=== PATIENT | female | born 1945 | race Caucasian/White ===

== ENCOUNTER 2018-03-07 20:20 | Outpatient (CLI) | payer MEDICARE | END 2018-03-07 20:21 | disposition critical access hospital (66) | LOC: EMS 20:20 | PROVIDERS: ATTEND Surgery | DX: R55 Syncope and collapse (principal); R46.4 Slowness and poor responsiveness; R47.81 Slurred speech | CPT/HCPCS: A0425; A0427 ==

== ENCOUNTER 2018-03-07 20:47 | Inpatient (IN) | payer MEDICARE ==
[2018-03-07] MEDS ORDERED: SODIUM CHLORIDE 0.9% 1,000 ML IV ONE ×2 (20:54→22:54)
--- NOTE | 2018-03-07 21:55 | CT Preliminary Report ---
Exam: CT HEAD W/O IMPRESSION: 1. Age-indeterminate likely remote appearing infarct is seen adjacent to the caudate head on the righ t 2. Small vessel ischemic change is present in the cerebral hemisphere white matter 3. Hyperattenuation involving the distal basilar artery and its tip could reflect imaging of atherosc lerosis on Brian. Thrombus in the basilar tip is not excluded. 4. Changes of chronic left maxillary sinusitis are noted. [facility] SITE ID: [id number]
[2018-03-07 22:05] LABS: BASOPHILS % (AUTO) 0.3 %; EOSINOPHILS # (AUTO) 0.1 10^3/uL (0.0-0.7); EOSINOPHILS % (AUTO) 0.9 %; HGB - HEMOGLOBIN 11.3 g/dL (12.0-16.0); LYMPHOCYTES # (AUTO) 0.6 10^3/uL (1.5-3.5); LYMPHOCYTES % (AUTO) 8.8 %; MEAN CORPUSCULAR HEMOGLOBIN 22.8 pg (27.0-31.0); MEAN CORPUSCULAR HGB CONC 30.8 g/dL (32.0-36.0); MEAN CORPUSCULAR VOLUME 74.1 fL (81.0-99.0); MEAN PLATELET VOLUME 7.4 fL (7.9-10.8); MONOCYTES # (AUTO) 0.3 10^3/uL (0.0-1.0); MONOCYTES % (AUTO) 4.6 %; NEUTROPHILS # (AUTO) 6.1 10^3/uL (1.5-6.6); NEUTROPHILS % (AUTO) 85.4 %; PLT - PLATELET COUNT 224 10^3/uL (130-450); RED BLOOD COUNT 4.98 10^6/uL (4.20-5.40); RED CELL DISTRIBUTION WIDTH 18.1 % (12.0-15.0); WHITE BLOOD COUNT 7.1 x10^3/uL (4.8-10.8)
--- NOTE | 2018-03-07 22:06 | XRAY Preliminary Report ---
Exam: XR CHEST 1 VIEW X-RAY IMPRESSION: No acute cardiopulmonary abnormality. [facility] SITE ID: [id number]
--- NOTE | 2018-03-07 22:11 | XRAY Report ---
EXAM: CHEST RADIOGRAPHY EXAM DATE: 03/07/2018 09:26 PM. CLINICAL HISTORY: Generalized weakness. COMPARISON: None. TECHNIQUE: 1 view. FINDINGS: Lungs/Pleura: No focal opacities evident. No significant pleural effusion. No pneumothorax. Mediastinum: Within exam limitations, the cardiomediastinal contour is unremarkable. Pulmonary vascul ature is within normal limits. Other: Mild irregularity of the posterior left fourth rib near midline, perhaps sequela of remote inj ury. IMPRESSION: No acute cardiopulmonary abnormality. [facility] Referring Provider Line: [phone] SITE ID: [id number]
[2018-03-07 22:22] LABS: ALBUMIN/GLOBULIN RATIO 0.8 (1.0-2.2); ALKALINE PHOSPHATASE 69 IU/L (42-121); ALT ALANINE AMINOTRANSFERASE < 10 IU/L (10-60); AST ASPARTATE AMINOTRANSFERASE 19 IU/L (10-42); BILIRUBIN,TOTAL 0.7 mg/dL (0.2-1.0); BUN - BLOOD UREA NITROGEN 23 mg/dL (6-20); CALCIUM 8.6 mg/dL (8.5-10.3); CARBON DIOXIDE - CO2 24 mmol/L (21-32); CHLORIDE 103 mmol/L (101-111); CREATININE 1.6 mg/dL (0.4-1.0); GFR - MDRD 32 (>89); GLUCOSE 165 mg/dL (70-100); LIPASE 36 U/L (22-51); MAGNESIUM 2.3 mg/dL (1.7-2.8); PHOSPHORUS 3.8 mg/dL (2.5-4.6); SODIUM 136 mmol/L (135-145)
--- NOTE | 2018-03-07 22:24 | CT Report ---
EXAM: CT HEAD EXAM DATE: 03/07/2018 09:33 PM. CLINICAL HISTORY: Syncope, headache. COMPARISON: None. TECHNIQUE: Multiaxial CT images were obtained from the foramen magnum to the vertex. Reformats: Coron al. IV contrast: None. In accordance with CT protocol optimization, one or more of the following dose reduction techniques w ere utilized for this exam: automated exposure control, adjustment of mA and/or KV based on patient s ize, or use of iterative reconstructive technique. FINDINGS: Age-appropriate prominence of the ventricles and sulci is noted. There is an oval 9 mm hypodensity la teral to the caudate head on the right. Subtle patchy low-attenuation is seen in the cerebral hemisphere white matter bilaterally. No territorial loss of banks-white matter differentiation is seen. No intracranial mass or hemorrhage is present. No extra-axial fluid collection is identified. There is hyperattenuation involving the distal basilar tip. No mass is present in either orbit. There is near complete opacification of the visualized right maxillary sinus which contains central c alcification/mineralization. The albright of this left maxillary sinus are thickened and sclerotic. The ethmoid air cells demonstrate bilateral mucosal thickening. No suspicious lytic or blastic region is present in the calvarium. IMPRESSION: 1. Age-indeterminate likely remote lacunar infarct is seen adjacent to the caudate head on the right. 2. Small vessel ischemic change is present in the cerebral hemisphere white matter 3. Hyperattenuation involving the distal basilar artery and its tip could reflect imaging of atherosc lerosis en face. Thrombus in the basilar tip is not excluded. 4. Changes of chronic left maxillary sinusitis are noted. [facility] Referring Provider Line: [phone] SITE ID: [id number]
--- NOTE | 2018-03-07 22:54 | ED Physician Documentation ---
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 According to patient and ems patient had gone to the bathroom and when she was walking back towards bed she felt like she was going to pass out. patient was helped to the ground without falling. ems was called. When ems arrived patient had some slurred speech and pinpoint pupils. Patient denied any narcotic use but did state that she tried marijuana chocolates. Upon initial evaluation in the emergency department patient had some generalized weakness but no neurological deficits. Review of Systems Constitutional: denies: Fever, Chills Eyes: denies: Decreased vision, Photophobia Ears: reports: Reviewed and negative Nose: reports: Reviewed and negative Cardiac: denies: Chest pain / pressure, Palpitations Respiratory: denies: Dyspnea, Cough GI: denies: Nausea, Vomiting : reports: Reviewed and negative Skin: denies: Rash, Lesions Neurologic: reports: Generalized weakness, Difficulty speaking, Near syncope. 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 Cardiovascular: Coronary stent, Angioplasty HEENT: Cataracts - Present Medications Home Medications: Ambulatory Orders Medication Instructions Recorded Confirmed Naproxen Sodium [Aleve] 220 mg PO PRN 05/29/13 01/14/14 Hydrocodone/Acetaminophen 1 - 2 each PO Q6H PRN #14 tablet 06/18/16 [Hydrocodon-Acetaminophen 5-325] Nitrofurantoin Monohyd/M-Cryst 100 mg PO BID 5 Days capsule 06/18/16 [Macrobid 100 mg Capsule] predniSONE [Prednisone] 20 mg PO DAILY 5 Days tablet 06/18/16 - Allergies Allergies/Adverse Reactions: Allergies Allergy/AdvReac Type Severity Reaction Status Date / Time acetaminophen [From Percocet] AdvReac Intermediate Emesis Verified 03/07/18 21: 36 oxycodone HCl * AdvReac Intermediate Emesis Verified 03/07/18 21:36 [From Percocet] codeine [Codeine] AdvReac Mild Itching Verified 03/07/18 21:36 Penicillins AdvReac Mild Itching Verified 03/07/18 21:36 hydrocodone AdvReac Unknown Itching Verified 03/07/18 21:36 prednisone AdvReac Unknown Itching Verified 03/07/18 21:36 fluoxetine HCl * AdvReac Anxiety Verified 03/07/18 21:36 [From Prozac] - Social History Does the pt smoke?: No Smoking Status: Never smoker Does the pt drink ETOH?: No Does the pt have substance abuse?: No Substance Use and Type: Marijuana - Immunizations Immunizations are current?: Yes PD ED PE NORMAL - Vitals Vital signs reviewed: Yes - General General: Alert and oriented X 3 - HEENT HEENT: Atraumatic - Neck Neck: No JVD - Cardiac Cardiac: RRR, No murmur - Respiratory Respiratory: No respiratory distress - Abdomen Abdomen: Soft, Non tender, Non distended - Derm Derm: Normal color, Warm and dry - Extremities Extremities: No deformity - Neuro Neuro: Alert and oriented X 3, Other (generalized weakness but moving all extremities) Eye Opening: Spontaneous Motor: Obeys Commands Verbal: Oriented GCS Score: 15 PD ED PE EXPANDED - General General: Alert, No acute distress - HEENT HEENT: Atraumatic, PERRL, Dry mucous membranes Results - Vitals Vitals: Vital Signs - 24 hr 03/07/18 03/07/18 03/07/18 20:49 22:22 23:57 Temperature 36.0 C L Heart Rate 117 H 108 H 104 H Respiratory 20 18 17 Rate Blood Pressure 129/67 107/76 136/76 H O2 Saturation 95 98 98 Oxygen O2 Source Nasal cannula - EKG (time done) 2057 Rate: Rate (enter#) (109) Rhythm: Sinus tachycardia [place]: Normal Intervals: Normal ND Ischemia: Q waves Compare to prior EKG: Old EKG unavailable - Labs Labs: Laboratory Tests 03/07/18 03/07/18 03/07/18 21:55 21:55 21:55 WBC 7.1 RBC 4.98 Hgb 11.3 L Hct 36.9 L MCV 74.1 L MCH 22.8 L MCHC 30.8 L RDW 18.1 H Plt Count 224 MPV 7.4 L Neut # 6.1 Lymph # 0.6 L [place] # 0.3 Eos # 0.1 Baso # 0.0 Absolute Nucleated RBC 0.00 Nucleated RBC % 0.0 Sodium 136 Potassium 4.2 Chloride 103 Carbon Dioxide 24 Anion Gap 9.0 BUN 23 H Creatinine 1.6 H Estimated GFR (MDRD) 32 L Glucose 165 H Lactic Acid Calcium 8.6 Phosphorus 3.8 Magnesium 2.3 Total Bilirubin 0.7 AST 19 ALT < 10 L Alkaline Phosphatase 69 Troponin I 0.15 B-Natriuretic Peptide Total Protein 7.0 Albumin 3.0 L Globulin 4.0 Albumin/Globulin Ratio 0.8 L Lipase 36 03/07/18 03/07/18 22:00 22:00 WBC RBC Hgb Hct MCV MCH MCHC RDW Plt Count MPV Neut # Lymph # [place] # Eos # Baso # Absolute Nucleated RBC Nucleated RBC % Sodium Potassium Chloride Carbon Dioxide Anion Gap BUN Creatinine Estimated GFR (MDRD) Glucose Lactic Acid 3.4 H* Calcium Phosphorus Magnesium Total Bilirubin AST ALT Alkaline Phosphatase Troponin I B-Natriuretic Peptide 44 Total Protein Albumin Globulin Albumin/Globulin Ratio Lipase - Rads (name of study) ct head Radiology: Final report received (chronic sinusitis, basilar thrombus vs facial artifact), See rad report PD MEDICAL DECISION MAKING - ED course Complexity details: reviewed old records, reviewed results, re-evaluated patient , considered differential, d/w patient, d/w family, d/w consultant internship ED course: Beverley was seen and examined at bedside. IV access was gained. labs were drawn. ekg was performed and showed no acute abnormalities. labs did show an elevated lactic acid and dehydration. Patient was started on two liters of fluid. CT head was ordered. When patient returned from imaging the results were reviewed. there was a questionalable basilar thrombus so MRI was needed. case was discussed with the hospitalist. it was decided to place the patient in observation for hydration and MRI. Patient was feeling better after the fluids and was transferred with no neurological deficits, in stable condition. Departure - Departure Disposition: ED Place in Observation Clinical Impression: Acute renal insufficiency Condition: Stable
[2018-03-08 01:05] LABS: BILIRUBIN,URINE NEGATIVE (NEGATIVE); CLARITY,URINE CLEAR (CLEAR); GLUCOSE, URINE (UA) NEGATIVE (NEGATIVE); KETONES,URINE (UA) NEGATIVE (NEGATIVE); LEUKOCYTE ESTERASE, URINE NEGATIVE (NEGATIVE); MUDS CUTOFF CONCENTRATIONS CUTOFF CONC BELOW:; NITRITE,URINE NEGATIVE (NEGATIVE); OCCULT BLOOD,URINE NEGATIVE (NEGATIVE); PROTEIN,URINE NEGATIVE (NEGATIVE); UROBILINOGEN,URINE 0.2 (NORMAL) E.U./dL (NORMAL)
[2018-03-08] MEDS ORDERED: SODIUM CHLORIDE FLUSH 0.9% 10 ML SYRINGE IVP PRN (01:06)
[2018-03-08] MEDS ORDERED: ACETAMINOPHEN 325 MG TABLET PO PRN (01:06)
[2018-03-08] MEDS ORDERED: NAPROXEN SODIUM 220 MG PO PRN (01:09)
[2018-03-08 01:15] LABS: AMPHETAMINE SCREEN,URINE NEGATIVE (NEGATIVE); BENZODIAZEPINES SCREEN, URINE NEGATIVE (NEGATIVE); COCAINE SCREEN URINE NEGATIVE (NEGATIVE); METHADONE SCREEN, URINE NEGATIVE (NEGATIVE); METHAMPHETAMINES SCREEN, URINE NEGATIVE (NEGATIVE); OPIATE SCREEN, URINE NEGATIVE (NEGATIVE); OXYCODONE SCREEN, URINE NEGATIVE (NEGATIVE); PROPOXYPHENE SCREEN, URINE NEGATIVE (NEGATIVE); TRICYCLIC ANTIDEPRESSANT,URINE NEGATIVE (NEGATIVE)
[2018-03-08] MEDS ORDERED: D5.45NS W/20 MEQ KCL 1,000 ML IV SCH ×3 (02:00→11:50)
[2018-03-08] MEDS: NAPROXEN 250 MG TABLET PO PRN ×3 (02:26→20:27)
[2018-03-08 06:30] LABS: HGB - HEMOGLOBIN 10.2 g/dL (12.0-16.0); MEAN CORPUSCULAR HEMOGLOBIN 22.8 pg (27.0-31.0); MEAN CORPUSCULAR HGB CONC 30.7 g/dL (32.0-36.0); MEAN CORPUSCULAR VOLUME 74.3 fL (81.0-99.0); MEAN PLATELET VOLUME 7.2 fL (7.9-10.8); RED BLOOD COUNT 4.48 10^6/uL (4.20-5.40); RED CELL DISTRIBUTION WIDTH 17.7 % (12.0-15.0); WHITE BLOOD COUNT 4.5 x10^3/uL (4.8-10.8)
[2018-03-08 06:41] LABS: CALCIUM 7.9 mg/dL (8.5-10.3); CREATININE 1.4 mg/dL (0.4-1.0)
--- NOTE | 2018-03-08 06:45 | HISTORY & PHYSICAL EXAMINATION ---
Chief Complaint - Chief Complaint Chief Complaint: Near syncope History of Present Illness - Admitted From Admitted From:: home - History Obtained From History obtained from: patient, ED Physician - History of Present Illness HPI Comment/Other: Ms. Chanell Ball is a very pleasant 72-year-old lady who had tried some marijuana brownies this evening and afterwards, while walking to the bathroom became weak and disoriented and felt the need to sit down. Her roommate helped her to the ground and stated that she did not pass out but became less responsive for a few moments. She was brought to the emergency department where head CT was performed and found a possible basilar infarct which could not be ruled out without an MRI. Because of this was felt to be prudent to admit her to the hospital in observation so that she may have an MRI in the morning to rule out an infarct. 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 Patient's father in the war. Living arrangement: At home Living Situation: With friend(s) - Substance History Use: Uses substance without health or social issues: Cannabis Abuse: Recurrent use of substance despite neg consequences: NONE Dependence: Experiences withdrawal or developed tolerances: NONE - POLST Patient has POLST: Yes POLST Status: DNR Meds/Allgy - Home Medications Home Medications: Ambulatory Orders Medication Instructions Recorded Confirmed Naproxen Sodium [Aleve] 220 mg PO PRN 05/29/13 01/14/14 Hydrocodone/Acetaminophen 1 - 2 each PO Q6H PRN #14 tablet 06/18/16 [Hydrocodon-Acetaminophen 5-325] Nitrofurantoin Monohyd/M-Cryst 100 mg PO BID 5 Days capsule 06/18/16 [Macrobid 100 mg Capsule] predniSONE [Prednisone] 20 mg PO DAILY 5 Days tablet 06/18/16 - Allergies Allergies/Adverse Reactions: Allergies Allergy/AdvReac Type Severity Reaction Status Date / Time acetaminophen [From Percocet] AdvReac Intermediate Emesis Verified 03/07/18 21: 36 oxycodone HCl * AdvReac Intermediate Emesis Verified 03/07/18 21:36 [From Percocet] codeine [Codeine] AdvReac Mild Itching Verified 03/07/18 21:36 Penicillins AdvReac Mild Itching Verified 03/07/18 21:36 hydrocodone AdvReac Unknown Itching Verified 03/07/18 21:36 prednisone AdvReac Unknown Itching Verified 03/07/18 21:36 fluoxetine HCl * AdvReac Anxiety Verified 03/07/18 21:36 [From Prozac] Review of Systems - Constitutional Constitutional: reports: Fatigue, Weakness. denies: Fever, Chills, Malaise, Night sweats - Eyes Eyes: denies: Pain, Irritation, Amaurosis - Ears, Nose & Throat Ears, Nose & Throat: denies: Ear pain, Hearing loss, Hearing aids, Tinnitus, Vertigo, Nasal pain, Nasal discharge - Cardiovascular Cariovascular: reports: Lightheadedness. denies: Irregular heart rate, Palpitations, Chest pain, Edema - Respiratory Respiratory: denies: Cough, Sputum production, Wheezing, Snoring, Hemoptysis - Gastrointestinal Gastrointestinal: denies: Abdominal pain, Abdominal distention, Constipation, Diarrhea, Change in bowel habits, Rectal bleeding - Genitourinary Genitourinary: denies: Dysuria, Frequency, Urgency, Hematuria - Musculoskeletal Musculoskeletal: denies: Muscle pain, Back pain, Muscle aches, Stiffness - Integumentary Integumentary: denies: Rash, Pruritis, Lesions, Dryness - Neurological Neurological: denies: General weakness, Focal weakness, Headache, Dizziness - Psychiatric Psychiatric: denies: Depression, Anxiety, Suicidal - Endocrine Endocrine: denies: Polyuria, Polydypsia, Polyphagia - Hematologic/Lymphatic Hematologic/Lymphatic: denies: Anemia, Bruising, Petechiae, Lymphadenopathy - All Other Systems All Other Systems: reports: Reviewed and negative Exam - Vital Signs Reviewed Vital Signs: Yes Vital Signs: Vital Signs x48h Temp Pulse Pulse Resp BP BP Pulse Ox 03/08/18 06:01 36.3 C L 97 16 154/86 H 97 03/08/18 02:19 36.4 C L 111 H 16 134/72 H 97 03/08/18 01:37 113 H 20 144/88 H 96 - Physical Exam General Appearance: positive: No acute distress, Alert, Other (The patient seems "high", slightly lethargic) Eyes Bilateral: positive: Normal inspection, EOMI, No lid inflammation, Conjunctivae nml, No scleral icterus ENT: positive: ENT inspection nml, Pharynx nml, No signs of dehydration Neck: positive: Nml inspection, Thyroid nml, No JVD, Trachea midline. negative : Thyromegaly Respiratory: positive: Chest non-tender, No respiratory distress, Breath sounds nml. negative: Wheezes, Rales, Rhonchi Cardiovascular: positive: Regular rate & rhythm, No murmur, No gallop Peripheral Pulses: positive: 1+ Abdomen: positive: Non-tender, No organomegaly, Nml bowel sounds, No distention. negative: Guarding, Rebound Back: positive: Nml inspection. negative: CVA tenderness (R), CVA tenderness (L ) Skin: positive: Color nml, No rash, Warm, Dry. negative: Cyanosis Extremities: positive: Non-tender, Full ROM, Nml appearance. negative: No pedal edema Neurologic/Psychiatric: positive: Oriented x3, CN's nml (2-12), Motor nml, Sensation nml, Other (Patient seems "high", slightly lethargic) Conclusion/Plan - Problem List (1) Near syncope Conclusion/Plan: Likely secondary to the ingested marijuana, the patient's pupils were pinpoint on admission to the ED according to the ED physician. She is now more conversant and seemingly returned to her baseline however a basilar infarction could not be ruled out on CT and so we will have her stay overnight, monitor her , and obtain an MRI of her brain in the morning. - Lab Results Lab results reviewed: Yes Fish Bones: 03/08/18 06:24 03/08/18 06:24 - Diagnostic Imaging Results Diagnostic Imaging Results Comments: EXAM: CT HEAD EXAM DATE: 03/07/2018 09:33 PM. CLINICAL HISTORY: Syncope, headache. COMPARISON: None. TECHNIQUE: Multiaxial CT images were obtained from the foramen magnum to the vertex. Reformats: Coronal. IV contrast: None. In accordance with CT protocol optimization, one or more of the following dose reduction techniques were utilized for this exam: automated exposure control, adjustment of mA and/or KV based on patient size, or use of iterative reconstructive technique. FINDINGS: Age-appropriate prominence of the ventricles and sulci is noted. There is an oval 9 mm hypodensity lateral to the caudate head on the right. Subtle patchy low-attenuation is seen in the cerebral hemisphere white matter bilaterally. No territorial loss of banks-white matter differentiation is seen. No intracranial mass or hemorrhage is present. No extra-axial fluid collection is identified. There is hyperattenuation involving the distal basilar tip. No mass is present in either orbit. There is near complete opacification of the visualized right maxillary sinus which contains central calcification/mineralization. The albright of this left maxillary sinus are thickened and sclerotic. The ethmoid air cells demonstrate bilateral mucosal thickening. No suspicious lytic or blastic region is present in the calvarium. IMPRESSION: 1. Age-indeterminate likely remote lacunar infarct is seen adjacent to the caudate head on the right. 2. Small vessel ischemic change is present in the cerebral hemisphere white matter 3. Hyperattenuation involving the distal basilar artery and its tip could reflect imaging of atherosclerosis en face. Thrombus in the basilar tip is not excluded. 4. Changes of chronic left maxillary sinusitis are noted. Core Measures - Anticipated LOS I expect patient to be DC'd or transferred within 96 hours.: Yes - DVT/VTE - Prophylaxis VTE/DVT Device ordered at admit?: Yes
[2018-03-08] MEDS: SODIUM CHLORIDE FLUSH 0.9% 10 ML SYRINGE IVP SCH ×2 (07:20→13:55)
[2018-03-08] MEDS: POLYETHYLENE GLYCOL 3350 17 GM PACKET PO SCH (07:20)
[2018-03-08] MEDS ORDERED: GADOBUTROL 10 MMOL/10 ML SYRINGE ONE (08:39)
[2018-03-08] MEDS ORDERED: predniSONE 20 MG TABLET PO SCH (09:00)
[2018-03-08] MEDS ORDERED: ENOXAPARIN 40 MG/0.4 ML SYRINGE SUBQ SCH (09:00)
[2018-03-08] MEDS ORDERED: GADOBUTROL 10 MMOL/10 ML SYRINGE IVP ONE (09:27)
[2018-03-08] MEDS: HYDROcod/ACETAM 5/325 MG TABLET PO PRN ×2 (10:08→20:27)
--- NOTE | 2018-03-08 11:10 | MRI Report ---
EXAM: MRI BRAIN WITHOUT AND WITH CONTRAST EXAM DATE: 03/08/2018 09:51 AM. CLINICAL HISTORY: Syncope, posible thrombus per ct. COMPARISON: CT head 03/07/2018. TECHNIQUE: Multiplanar, multisequence T1-weighted and fluid-sensitive MR sequences of the brain were performed. Sequences optimized for routine evaluation. Other: None. IV Contrast: None.. FINDINGS: Recent linear infarct in the left medial cerebellum measures 8.4 mm. Small focus of T2 shine through in the subcortical right frontal lobe diffusion weighted sequence. Moderate diffuse cerebral volume loss. No midline shift or hydrocephalus. Scattered T2 hyperintensiti es in the periventricular cerebral white matter. Susceptibility weighted imaging shows no focal abnormalities. Postcontrast sequences demonstrates no focal abnormalities. Limited evaluation of the arterial and du ral venous sinus structures are unremarkable. IMPRESSION: 1. 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 2. Moderate diffuse cerebral volume loss. 3. Chronic microvascular angiopathy. [facility] The above findings CRITICAL RESULT were discussed with by Dr. Ronny Zambrano at 11:08 hrs on 03/08/18. Referring Provider Line: [phone] SITE ID: [id number]
[2018-03-08] MEDS ORDERED: SODIUM CHLORIDE 0.9% 1,000 ML IV SCH (12:00)
[2018-03-08] MEDS: ATORVASTATIN 40 MG TABLET PO SCH ×2 (13:27→13:55)
[2018-03-08] MEDS: ASPIRIN 325 MG TABLET PO SCH (13:27)
--- NOTE | 2018-03-08 15:03 | PROVIDER PROGRESS NOTE ---
Subjective - Prog Note Date Prog Note Date: 03/08/18 - Subjective Pt reports feeling: No change Subjective: pt still complaint of bilateral lower extremities weakness, denies fever, chill , chest pain, SOB. Current Medications - Current Medications Current Medications: Active Medications Acetaminophen (Tylenol) 650 mg PO Q4HR PRN PRN Reason: Pain 1 to 4 Acetaminophen/Hydrocodone Bitart ([place] 5/325) 1 tab PO Q6H PRN PRN Reason: pain Last Admin: 03/08/18 10:08 Dose: 1 tab Aspirin (Frank) 325 mg PO DAILYWM [facility] Last Admin: 03/08/18 13:27 Dose: 325 mg Atorvastatin Calcium (Lipitor) 80 mg PO QPM [facility] Last Admin: 03/08/18 13:55 Dose: Not Given Enoxaparin Sodium (Lovenox) 40 mg SUBQ DAILY [facility] Sodium Chloride (Normal Saline 0.9%) 1,000 mls @ 83.333 mls/hr IV .Q12H [facility] Last Admin: 03/08/18 13:27 Dose: 83.333 mls/hr Naproxen (Naprosyn) 250 mg PO Q8H PRN PRN Reason: PAIN Last Admin: 03/08/18 10:07 Dose: 250 mg Polyethylene Glycol (Miralax) 17 gm PO DAILY [facility] Last Admin: 03/08/18 07:20 Dose: Not Given Sodium Chloride (Normal Saline Flush 0.9%) 10 ml IVP PRN PRN PRN Reason: NEEDED PER PROVIDER ORDERS Last Admin: 03/08/18 02:26 Dose: 10 ml Sodium Chloride (Normal Saline Flush 0.9%) 10 ml IVP 0100,0900,1700 [facility] Last Admin: 03/08/18 13:55 Dose: Not Given Naproxen Sodium [Aleve] 220 mg PO Q12H PRN 05/29/13 Calcium Carbonate [Tums (Calcium Carbonate 500mg)] 500 mg PO Q4-6H PRN 03/08/18 Objective - Vital Signs/Intake & Output Reviewed Vital Signs: Yes Vital Signs: Vital Signs x48h Pulse Resp BP Pulse Ox 03/08/18 13:46 85 16 142/78 H 98 Intake & Output: Intake & Output 03/05/18 03/06/18 03/07/18 03/08/18 23:59 23:59 23:59 23:59 Intake Total 1630 Output Total 200 Balance 1430 - Objective General Appearance: positive: No acute distress, Alert. negative: Lethargic Eyes Bilateral: positive: Normal inspection, PERRL, No lid inflammation, Conjunctivae nml ENT: positive: ENT inspection nml, Pharynx nml, No signs of dehydration. negative: Purulent nasal drainage, Pharyngeal erythema, Oral lesions Neck: positive: Nml inspection, Thyroid nml, No JVD, Trachea midline. negative : Thyromegaly, Lymphadenopathy (R), Lymphadenopathy (L), Stiff neck, Swelling/ bruising, Tracheal deviation Respiratory: positive: Chest non-tender, No respiratory distress, Breath sounds nml. negative: Wheezes, Rales, Rhonchi Cardiovascular: positive: Regular rate & rhythm, No murmur, No gallop. negative : Irregularly irregular, Extrasystoles, Tachycardia, Bradycardia, Systolic murmur, Diastolic murmur Peripheral Pulses: 2+ Radial (R), 2+ Radial (L), 2+ Dorsalis pedis (R), 2+ Dorsalis pedis (L) Abdomen: positive: Non-tender, No organomegaly, Nml bowel sounds, No distention. negative: Tenderness, Guarding, Rebound Back: positive: Nml inspection. negative: CVA tenderness (R), CVA tenderness (L ) Skin: positive: Color nml, No rash, Warm, Dry. negative: Cyanosis, Diaphoresis , Pallor Extremities: positive: Non-tender, Nml appearance. negative: Calf tenderness, Joint swelling, Jalyan's sign/cords Neurologic/Psychiatric: positive: Oriented x3, Sensation nml, Weakness. negative: Motor nml, Sensory loss, Facial droop, Slurred/abnml speech, Depressed mood/affect - Lab Results Fish Bones: 03/08/18 06:24 03/08/18 06:24 Other Labs: Lab Results x24hrs 03/08/18 03/08/18 03/08/18 Range/Units 14:03 08:30 06:24 WBC (4.8-10.8) x10^3/uL RBC (4.20-5.40) 10^6/uL Hgb (12.0-16.0) g/dL Hct (37.0-47.0) % MCV (81.0-99.0) fL MCH (27.0-31.0) pg MCHC (32.0-36.0) g/dL RDW (12.0-15.0) % Plt Count (130-450) 10^3/uL MPV (7.9-10.8) fL Sodium 137 (135-145) mmol/L Potassium 4.0 (3.5-5.0) mmol/L Chloride 109 (101-111) mmol/L Carbon Dioxide 23 (21-32) mmol/L Anion Gap 5.0 L (6-13) BUN 21 H (6-20) mg/dL Creatinine 1.4 H (0.4-1.0) mg/dL Estimated GFR (MDRD) 37 L (>89) Glucose 103 H (70-100) mg/dL Lactic Acid 3.7 H* 2.7 H (0.5-2.2) mmol/L Calcium 7.9 L (8.5-10.3) mg/dL 03/08/18 03/08/18 Range/Units 06:24 02:47 WBC 4.5 L (4.8-10.8) x10^3/uL RBC 4.48 (4.20-5.40) 10^6/uL Hgb 10.2 L (12.0-16.0) g/dL Hct 33.3 L (37.0-47.0) % MCV 74.3 L (81.0-99.0) fL MCH 22.8 L (27.0-31.0) pg MCHC 30.7 L (32.0-36.0) g/dL RDW 17.7 H (12.0-15.0) % Plt Count 207 (130-450) 10^3/uL MPV 7.2 L (7.9-10.8) fL Sodium (135-145) mmol/L Potassium (3.5-5.0) mmol/L Chloride (101-111) mmol/L Carbon Dioxide (21-32) mmol/L Anion Gap (6-13) BUN (6-20) mg/dL Creatinine (0.4-1.0) mg/dL Estimated GFR (MDRD) (>89) Glucose (70-100) mg/dL Lactic Acid 2.1 (0.5-2.2) mmol/L Calcium (8.5-10.3) mg/dL ABX Reporting Has patient been on IV antibiotics over the past 48 hours?: No Assessment/Plan - Problem List (1) CVA (cerebral vascular accident) Impression: MRI reveals pt had recent acute stroke. discuss the result and care plan with pt and pt's son Aspirin 325 mg daily Lipito, and Lipid panel test PT/OT pt does not have issue for swallow, continue current diet follow up ECHO (2) Near syncope Impression: pt denies any more pre-syncope, no N/V pt had stroke, and near syncope order ECHO, will follow up (3) Weakness of both legs Impression: continue PT/OT fall precaution (4) Hx of coronary artery disease Impression: stable, no chest pain. initial Troponin and EKG unremarkable order tele, continue vital monitor (5) Rheumatoid arteritis Impression: stable, pt state she did not take prednisone for four years, and she did not want Prednisone d/c prednisone, continue support. (6) Von Willebrand disease Impression: stable, check fact 8 activity. pt had CVA in Aspirin now, precaution of any bleeding. (7) Elevated lactic acid level Impression: pt's Lactic acid is 3.7, unknown the etiology. Pt does not have fever, chill, WBC is normal, UA is negative for UTI. Blood culture was done in ER, will follow up CXR IVF continue lab monitor (8) CKD (chronic kidney disease) Impression: GFR 37, creatinine 1.4 hydration with IVF avoid nephrological agents daily lab and vital monitor
[2018-03-08] MEDS: SODIUM CHLORIDE 0.9% 1,000 ML IV SCH (16:16)
--- NOTE | 2018-03-08 19:50 | XRAY Report ---
EXAM: CHEST RADIOGRAPHY EXAM DATE: 03/08/2018 03:44 PM. CLINICAL HISTORY: Continue elevated lactic acid, infection, mild SOB. COMPARISON: 03/07/2018 . TECHNIQUE: 1 view. FINDINGS: Lungs/Pleura: There are mildly increased interstitial markings. No consolidative process or nodule. L martin volumes appear stable. Negative for pneumothorax. Mediastinum: Within exam limitations, the cardiomediastinal contour is normal. Other: None. IMPRESSION: Possible mild pulmonary vascular congestion without focal pneumonia or monika pulmonary ed david. [facility] Referring Provider Line: [phone] SITE ID: [id number]
[2018-03-09] MEDS: SODIUM CHLORIDE 0.9% 1,000 ML IV SCH ×2 (00:02→11:56)
[2018-03-09] MEDS: SODIUM CHLORIDE FLUSH 0.9% 10 ML SYRINGE IVP SCH ×3 (04:51→16:25)
[2018-03-09 06:10] LABS: CHOL/HDL RATIO 7.6 (<4.4); CHOLESTEROL 121 mg/dL; HDL CHOLESTEROL 16 mg/dL; LDL CHOLESTEROL,CALCULATED 68 mg/dL; LDL/HDL RATIO 4.3 (<4.4); VLDL CHOLESTEROL 37 mg/dL
[2018-03-09] MEDS ORDERED: ASPIRIN 325 MG TABLET PO SCH (08:00)
[2018-03-09 08:20] LABS: BASOPHILS % (AUTO) 0.4 %; EOSINOPHILS # (AUTO) 0.1 10^3/uL (0.0-0.7); EOSINOPHILS % (AUTO) 1.7 %; HGB - HEMOGLOBIN 10.9 g/dL (12.0-16.0); LYMPHOCYTES # (AUTO) 1.5 10^3/uL (1.5-3.5); LYMPHOCYTES % (AUTO) 31.1 %; MEAN CORPUSCULAR HEMOGLOBIN 23.2 pg (27.0-31.0); MEAN CORPUSCULAR HGB CONC 31.2 g/dL (32.0-36.0); MEAN CORPUSCULAR VOLUME 74.4 fL (81.0-99.0); MEAN PLATELET VOLUME 7.3 fL (7.9-10.8); MONOCYTES # (AUTO) 0.2 10^3/uL (0.0-1.0); NEUTROPHILS # (AUTO) 2.9 10^3/uL (1.5-6.6); NEUTROPHILS % (AUTO) 61.8 %; PLT - PLATELET COUNT 213 10^3/uL (130-450); WHITE BLOOD COUNT 4.7 x10^3/uL (4.8-10.8)
[2018-03-09 08:21] LABS: MEAN RETIC VALUE 102.4; RED BLOOD COUNT 4.7 10^6/uL (4.20-5.40)
[2018-03-09 08:28] LABS: ALBUMIN 2.8 g/dL (3.2-5.5); ALBUMIN/GLOBULIN RATIO 0.7 (1.0-2.2); ALKALINE PHOSPHATASE 72 IU/L (42-121); ALT ALANINE AMINOTRANSFERASE < 10 IU/L (10-60); AST ASPARTATE AMINOTRANSFERASE 14 IU/L (10-42); BILIRUBIN,TOTAL 0.6 mg/dL (0.2-1.0); BUN - BLOOD UREA NITROGEN 18 mg/dL (6-20); CALCIUM 8.1 mg/dL (8.5-10.3); CARBON DIOXIDE - CO2 23 mmol/L (21-32); CHLORIDE 107 mmol/L (101-111); CREATININE 1.2 mg/dL (0.4-1.0); GFR - MDRD 44 (>89); GLUCOSE 84 mg/dL (70-100); MAGNESIUM 2.2 mg/dL (1.7-2.8); SODIUM 135 mmol/L (135-145); TOTAL PROTEIN 6.7 g/dL (6.7-8.2)
[2018-03-09 08:46] LABS: % IRON SATURATION 9 % (20-50); IRON 27 ug/dL (28-170); TOTAL IRON BINDING CAPACITY 309 ug/dL (250-450); TRANSFERRIN 221 mg/dL (192-382)
[2018-03-09] MEDS ORDERED: ENOXAPARIN 40 MG/0.4 ML SYRINGE SUBQ SCH (09:00)
[2018-03-09] MEDS: POLYETHYLENE GLYCOL 3350 17 GM PACKET PO SCH (09:01)
[2018-03-09] MEDS: FERROUS SULFATE 325 MG TABLET PO SCH (09:01)
[2018-03-09] MEDS: ASPIRIN 325 MG TABLET PO SCH (09:01)
[2018-03-09 09:05] LABS: FERRITIN 39.8 ng/mL (11.0-306.8)
[2018-03-09] MEDS: HYDROcod/ACETAM 5/325 MG TABLET PO PRN ×2 (12:09→18:54)
--- NOTE | 2018-03-09 12:36 | PROVIDER PROGRESS NOTE ---
Subjective - Prog Note Date Prog Note Date: 03/09/18 - Subjective Pt reports feeling: Improved Subjective: pt state she feel good, no other complaint. Nurse report pt is difficult to stand up. No fever, chill, CP, or SOB. Current Medications - Current Medications Current Medications: Active Medications Acetaminophen (Tylenol) 650 mg PO Q4HR PRN PRN Reason: Pain 1 to 4 Last Admin: 03/09/18 00:10 Dose: 650 mg Acetaminophen/Hydrocodone Bitart ([place] 5/325) 1 tab PO Q6H PRN PRN Reason: pain Last Admin: 03/09/18 12:09 Dose: 1 tab Aspirin (Frank) 325 mg PO DAILYWM [facility] Last Admin: 03/09/18 09:01 Dose: 325 mg Atorvastatin Calcium (Lipitor) 80 mg PO QPM [facility] Last Admin: 03/08/18 13:55 Dose: Not Given Ferrous Sulfate (Feosol) 325 mg PO DAILYWM [facility] Last Admin: 03/09/18 09:01 Dose: 325 mg Sodium Chloride (Normal Saline 0.9%) 1,000 mls @ 100 mls/hr IV .Q10H [facility] Last Infusion: 03/09/18 10:18 Dose: Infused Naproxen (Naprosyn) 250 mg PO Q8H PRN PRN Reason: PAIN Last Admin: 03/08/18 20:27 Dose: 250 mg Polyethylene Glycol (Miralax) 17 gm PO DAILY [facility] Last Admin: 03/09/18 09:01 Dose: 17 gm Sodium Chloride (Normal Saline Flush 0.9%) 10 ml IVP PRN PRN PRN Reason: NEEDED PER PROVIDER ORDERS Last Admin: 03/08/18 02:26 Dose: 10 ml Sodium Chloride (Normal Saline Flush 0.9%) 10 ml IVP 0100,0900,1700 [facility] Last Admin: 03/09/18 09:01 Dose: Not Given Naproxen Sodium [Aleve] 220 mg PO Q12H PRN 05/29/13 Calcium Carbonate [Tums (Calcium Carbonate 500mg)] 500 mg PO Q4-6H PRN 03/08/18 Objective - Vital Signs/Intake & Output Reviewed Vital Signs: Yes Vital Signs: Vital Signs x48h Temp Pulse Resp BP Pulse Ox 03/09/18 08:00 36.4 C L 81 16 150/82 H 96 Intake & Output: Intake & Output 03/06/18 03/07/18 03/08/18 03/09/18 23:59 23:59 23:59 23:59 Intake Total 5370.031 1148 Balance 3749.066 8290 - Objective General Appearance: positive: No acute distress, Alert. negative: Lethargic Eyes Bilateral: positive: Normal inspection, PERRL, No lid inflammation, Conjunctivae nml ENT: positive: ENT inspection nml, Pharynx nml, No signs of dehydration. negative: Purulent nasal drainage, Pharyngeal erythema, Oral lesions, Dry mucous membranes Neck: positive: Nml inspection, Thyroid nml, No JVD, Trachea midline. negative : Thyromegaly, Lymphadenopathy (R), Lymphadenopathy (L), Stiff neck Respiratory: positive: Chest non-tender, No respiratory distress, Breath sounds nml. negative: Wheezes, Rales, Rhonchi Cardiovascular: positive: Regular rate & rhythm, No murmur, No gallop. negative : Irregularly irregular, Extrasystoles, Tachycardia, Bradycardia, JVD present, Systolic murmur, Diastolic murmur Peripheral Pulses: 2+ Radial (R), 2+ Radial (L), 2+ Dorsalis pedis (R), 2+ Dorsalis pedis (L) Abdomen: positive: Non-tender, No organomegaly, Nml bowel sounds, No distention. negative: Tenderness, Guarding, Rebound Back: positive: Nml inspection. negative: CVA tenderness (R), CVA tenderness (L ) Skin: positive: Color nml, No rash, Warm, Dry. negative: Cyanosis, Diaphoresis , Pallor, Skin rash Extremities: positive: Non-tender, Nml appearance. negative: Calf tenderness, Joint swelling, Jaylan's sign/cords Neurologic/Psychiatric: positive: Oriented x3, Sensation nml, Weakness. negative: Mood/affect nml, Sensory loss, Facial droop, Slurred/abnml speech, Depressed mood/affect - Lab Results Fish Bones: 03/09/18 08:10 03/09/18 08:10 Other Labs: Lab Results x24hrs 03/09/18 03/09/18 03/09/18 Range/Units 08:10 08:10 08:10 WBC (4.8-10.8) x10^3/uL RBC (4.20-5.40) 10^6/uL Hgb (12.0-16.0) g/dL Hct (37.0-47.0) % MCV (81.0-99.0) fL MCH (27.0-31.0) pg MCHC (32.0-36.0) g/dL RDW (12.0-15.0) % Plt Count (130-450) 10^3/uL MPV (7.9-10.8) fL Reticulocyte % (Auto) (0.5-2.3) % Neut # (1.5-6.6) 10^3/uL Lymph # (1.5-3.5) 10^3/uL [place] # (0.0-1.0) 10^3/uL Eos # (0.0-0.7) 10^3/uL Baso # (0.0-0.1) 10^3/uL Absolute Nucleated RBC x10^3/uL Nucleated RBC % /100WBC Absolute Retic (0.020-0.110) 10^6/uL Sodium (135-145) mmol/L Potassium (3.5-5.0) mmol/L Chloride (101-111) mmol/L Carbon Dioxide (21-32) mmol/L Anion Gap (6-13) BUN (6-20) mg/dL Creatinine (0.4-1.0) mg/dL Estimated GFR (MDRD) (>89) Glucose (70-100) mg/dL Lactic Acid (0.5-2.2) mmol/L Calcium (8.5-10.3) mg/dL Magnesium (1.7-2.8) mg/dL Iron 27 L (28-170) ug/dL TIBC 309 (250-450) ug/dL % Saturation 9 L (20-50) % Transferrin 221 (192-382) mg/dL Ferritin 39.8 (11.0-306.8) ng/mL Total Bilirubin (0.2-1.0) mg/dL AST (10-42) IU/L ALT (10-60) IU/L Alkaline Phosphatase (42-121) IU/L Lactate Dehydrogenase 103 (91-225) IU/L Total Protein (6.7-8.2) g/dL Albumin (3.2-5.5) g/dL Globulin (2.1-4.2) g/dL Albumin/Globulin Ratio (1.0-2.2) Triglycerides ( - 149) mg/dL Cholesterol ( - 199) mg/dL LDL Cholesterol, Calc ( - 129) mg/dL VLDL Cholesterol mg/dL HDL Cholesterol (60 - ) mg/dL LDL/HDL Ratio (<4.4) Cholesterol/HDL Ratio (<4.4) Vitamin B12 421 (180-914) pg/mL 03/09/18 03/09/18 03/09/18 Range/Units 08:10 08:10 08:10 WBC (4.8-10.8) x10^3/uL RBC 4.70 (4.20-5.40) 10^6/uL Hgb (12.0-16.0) g/dL Hct (37.0-47.0) % MCV (81.0-99.0) fL MCH (27.0-31.0) pg MCHC (32.0-36.0) g/dL RDW (12.0-15.0) % Plt Count (130-450) 10^3/uL MPV (7.9-10.8) fL Reticulocyte % (Auto) 1.12 (0.5-2.3) % Neut # (1.5-6.6) 10^3/uL Lymph # (1.5-3.5) 10^3/uL [place] # (0.0-1.0) 10^3/uL Eos # (0.0-0.7) 10^3/uL Baso # (0.0-0.1) 10^3/uL Absolute Nucleated RBC x10^3/uL Nucleated RBC % /100WBC Absolute Retic 0.053 (0.020-0.110) 10^6/uL Sodium 135 (135-145) mmol/L Potassium 3.9 (3.5-5.0) mmol/L Chloride 107 (101-111) mmol/L Carbon Dioxide 23 (21-32) mmol/L Anion Gap 5.0 L (6-13) BUN 18 (6-20) mg/dL Creatinine 1.2 H (0.4-1.0) mg/dL Estimated GFR (MDRD) 44 L (>89) Glucose 84 (70-100) mg/dL Lactic Acid 1.3 (0.5-2.2) mmol/L Calcium 8.1 L (8.5-10.3) mg/dL Magnesium 2.2 (1.7-2.8) mg/dL Iron (28-170) ug/dL TIBC (250-450) ug/dL % Saturation (20-50) % Transferrin (192-382) mg/dL Ferritin (11.0-306.8) ng/mL Total Bilirubin 0.6 (0.2-1.0) mg/dL AST 14 (10-42) IU/L ALT < 10 L (10-60) IU/L Alkaline Phosphatase 72 (42-121) IU/L Lactate Dehydrogenase (91-225) IU/L Total Protein 6.7 (6.7-8.2) g/dL Albumin 2.8 L (3.2-5.5) g/dL Globulin 3.9 (2.1-4.2) g/dL Albumin/Globulin Ratio 0.7 L (1.0-2.2) Triglycerides ( - 149) mg/dL Cholesterol ( - 199) mg/dL LDL Cholesterol, Calc ( - 129) mg/dL VLDL Cholesterol mg/dL HDL Cholesterol (60 - ) mg/dL LDL/HDL Ratio (<4.4) Cholesterol/HDL Ratio (<4.4) Vitamin B12 (180-914) pg/mL 03/09/18 03/09/18 03/08/18 Range/Units 08:10 05:22 19:48 WBC 4.7 L (4.8-10.8) x10^3/uL RBC 4.70 (4.20-5.40) 10^6/uL Hgb 10.9 L (12.0-16.0) g/dL Hct 35.0 L (37.0-47.0) % MCV 74.4 L (81.0-99.0) fL MCH 23.2 L (27.0-31.0) pg MCHC 31.2 L (32.0-36.0) g/dL RDW 18.0 H (12.0-15.0) % Plt Count 213 (130-450) 10^3/uL MPV 7.3 L (7.9-10.8) fL Reticulocyte % (Auto) (0.5-2.3) % Neut # 2.9 (1.5-6.6) 10^3/uL Lymph # 1.5 (1.5-3.5) 10^3/uL [place] # 0.2 (0.0-1.0) 10^3/uL Eos # 0.1 (0.0-0.7) 10^3/uL Baso # 0.0 (0.0-0.1) 10^3/uL Absolute Nucleated RBC 0.00 x10^3/uL Nucleated RBC % 0.0 /100WBC Absolute Retic (0.020-0.110) 10^6/uL Sodium (135-145) mmol/L Potassium (3.5-5.0) mmol/L Chloride (101-111) mmol/L Carbon Dioxide (21-32) mmol/L Anion Gap (6-13) BUN (6-20) mg/dL Creatinine (0.4-1.0) mg/dL Estimated GFR (MDRD) (>89) Glucose (70-100) mg/dL Lactic Acid 2.4 H (0.5-2.2) mmol/L Calcium (8.5-10.3) mg/dL Magnesium (1.7-2.8) mg/dL Iron (28-170) ug/dL TIBC (250-450) ug/dL % Saturation (20-50) % Transferrin (192-382) mg/dL Ferritin (11.0-306.8) ng/mL Total Bilirubin (0.2-1.0) mg/dL AST (10-42) IU/L ALT (10-60) IU/L Alkaline Phosphatase (42-121) IU/L Lactate Dehydrogenase (91-225) IU/L Total Protein (6.7-8.2) g/dL Albumin (3.2-5.5) g/dL Globulin (2.1-4.2) g/dL Albumin/Globulin Ratio (1.0-2.2) Triglycerides 186 H ( - 149) mg/dL Cholesterol 121 ( - 199) mg/dL LDL Cholesterol, Calc 68 ( - 129) mg/dL VLDL Cholesterol 37 mg/dL HDL Cholesterol 16 L (60 - ) mg/dL LDL/HDL Ratio 4.3 (<4.4) Cholesterol/HDL Ratio 7.6 (<4.4) Vitamin B12 (180-914) pg/mL 03/08/18 Range/Units 14:03 WBC (4.8-10.8) x10^3/uL RBC (4.20-5.40) 10^6/uL Hgb (12.0-16.0) g/dL Hct (37.0-47.0) % MCV (81.0-99.0) fL MCH (27.0-31.0) pg MCHC (32.0-36.0) g/dL RDW (12.0-15.0) % Plt Count (130-450) 10^3/uL MPV (7.9-10.8) fL Reticulocyte % (Auto) (0.5-2.3) % Neut # (1.5-6.6) 10^3/uL Lymph # (1.5-3.5) 10^3/uL [place] # (0.0-1.0) 10^3/uL Eos # (0.0-0.7) 10^3/uL Baso # (0.0-0.1) 10^3/uL Absolute Nucleated RBC x10^3/uL Nucleated RBC % /100WBC Absolute Retic (0.020-0.110) 10^6/uL Sodium (135-145) mmol/L Potassium (3.5-5.0) mmol/L Chloride (101-111) mmol/L Carbon Dioxide (21-32) mmol/L Anion Gap (6-13) BUN (6-20) mg/dL Creatinine (0.4-1.0) mg/dL Estimated GFR (MDRD) (>89) Glucose (70-100) mg/dL Lactic Acid 3.7 H* (0.5-2.2) mmol/L Calcium (8.5-10.3) mg/dL Magnesium (1.7-2.8) mg/dL Iron (28-170) ug/dL TIBC (250-450) ug/dL % Saturation (20-50) % Transferrin (192-382) mg/dL Ferritin (11.0-306.8) ng/mL Total Bilirubin (0.2-1.0) mg/dL AST (10-42) IU/L ALT (10-60) IU/L Alkaline Phosphatase (42-121) IU/L Lactate Dehydrogenase (91-225) IU/L Total Protein (6.7-8.2) g/dL Albumin (3.2-5.5) g/dL Globulin (2.1-4.2) g/dL Albumin/Globulin Ratio (1.0-2.2) Triglycerides ( - 149) mg/dL Cholesterol ( - 199) mg/dL LDL Cholesterol, Calc ( - 129) mg/dL VLDL Cholesterol mg/dL HDL Cholesterol (60 - ) mg/dL LDL/HDL Ratio (<4.4) Cholesterol/HDL Ratio (<4.4) Vitamin B12 (180-914) pg/mL ABX Reporting Has patient been on IV antibiotics over the past 48 hours?: No Assessment/Plan - Problem List (1) CVA (cerebral vascular accident) Impression: Impression: nurse report pt is difficult to stand up continue PT/OT, will follow up continue Aspirin, Lipitor MRI reveals pt had recent acute stroke. discuss the result and care plan with pt and pt's son Aspirin 325 mg daily Lipito, and Lipid panel test PT/OT pt does not have issue for swallow, continue current diet follow up ECHO (2) Near syncope Impression: ECHO reveals unremarkable near syncope may be caused by her CVA pt denies any more pre-syncope, no N/V pt had stroke, and near syncope order ECHO, will follow up (3) Weakness of both legs Impression: improved, continue PT/OT continue PT/OT fall precaution (4) Hx of coronary artery disease Impression: stable, no chest pain. initial Troponin and EKG unremarkable order tele, continue vital monitor (5) Rheumatoid arteritis Impression: stable, pt state she did not take prednisone for four years, and she did not want Prednisone d/c prednisone, continue support. (6) Von Willebrand disease Impression: stable, check fact 8 activity. pt had CVA in Aspirin now, precaution of any bleeding. (7) Elevated lactic acid level Impression: lactic acid is down to normal. unknown etiology continue monitor pt's Lactic acid is 3.7, unknown the etiology. Pt does not have fever, chill, WBC is normal, UA is negative for UTI. Blood culture was done in ER, will follow up CXR IVF continue lab monitor (8) CKD (chronic kidney disease) Impression: slight improved to GFR 44. continue hydration continue lab monitor GFR 37, creatinine 1.4 hydration with IVF avoid nephrological agents daily lab and vital monitor (9) anemia HGB 10.9 iron study reveals mild iron deficiency PO iron continue lab monitor
[2018-03-09] MEDS: NAPROXEN 250 MG TABLET PO PRN (18:54)
[2018-03-09] MEDS: ATORVASTATIN 40 MG TABLET PO SCH (21:07)
[2018-03-10] MEDS: HYDROcod/ACETAM 5/325 MG TABLET PO PRN ×3 (00:57→15:44)
[2018-03-10 05:19] LABS: BASOPHILS % (AUTO) 0.6 %; EOSINOPHILS # (AUTO) 0.2 10^3/uL (0.0-0.7); EOSINOPHILS % (AUTO) 4.4 %; HGB - HEMOGLOBIN 10.6 g/dL (12.0-16.0); LYMPHOCYTES # (AUTO) 1.3 10^3/uL (1.5-3.5); LYMPHOCYTES % (AUTO) 30.6 %; MEAN CORPUSCULAR HEMOGLOBIN 22.8 pg (27.0-31.0); MEAN CORPUSCULAR HGB CONC 30.8 g/dL (32.0-36.0); MEAN CORPUSCULAR VOLUME 74.1 fL (81.0-99.0); MEAN PLATELET VOLUME 7.4 fL (7.9-10.8); MONOCYTES # (AUTO) 0.2 10^3/uL (0.0-1.0); MONOCYTES % (AUTO) 4.4 %; NEUTROPHILS # (AUTO) 2.6 10^3/uL (1.5-6.6); PLT - PLATELET COUNT 214 10^3/uL (130-450); RED BLOOD COUNT 4.64 10^6/uL (4.20-5.40); RED CELL DISTRIBUTION WIDTH 17.7 % (12.0-15.0); WHITE BLOOD COUNT 4.3 x10^3/uL (4.8-10.8)
[2018-03-10 05:30] LABS: ALBUMIN 2.5 g/dL (3.2-5.5); ALBUMIN/GLOBULIN RATIO 0.7 (1.0-2.2); ALKALINE PHOSPHATASE 69 IU/L (42-121); ALT ALANINE AMINOTRANSFERASE < 10 IU/L (10-60); AST ASPARTATE AMINOTRANSFERASE 15 IU/L (10-42); BILIRUBIN,TOTAL 0.7 mg/dL (0.2-1.0); BUN - BLOOD UREA NITROGEN 18 mg/dL (6-20); CALCIUM 8.1 mg/dL (8.5-10.3); CARBON DIOXIDE - CO2 23 mmol/L (21-32); CHLORIDE 109 mmol/L (101-111); CREATININE 1.2 mg/dL (0.4-1.0); GFR - MDRD 44 (>89); GLUCOSE 86 mg/dL (70-100); SODIUM 139 mmol/L (135-145); TOTAL PROTEIN 6.1 g/dL (6.7-8.2)
[2018-03-10] MEDS: DOCUSATE SODIUM 250 MG CAPSULE PO SCH (08:11)
[2018-03-10] MEDS: POLYETHYLENE GLYCOL 3350 17 GM PACKET PO SCH (08:11)
[2018-03-10] MEDS: ASPIRIN 325 MG TABLET PO SCH (08:11)
[2018-03-10] MEDS: FERROUS SULFATE 325 MG TABLET PO SCH (08:11)
[2018-03-10] MEDS: SENNA 8.6 MG TABLET PO SCH (11:41)
--- NOTE | 2018-03-10 15:28 | PROVIDER PROGRESS NOTE ---
Subjective - Prog Note Date Prog Note Date: 03/10/18 - Subjective Pt reports feeling: Improved Subjective: pt report she feel better today. she agree to be d/c to SNF as medical needed. Pt denies fever, chill, CP, SOB. Current Medications - Current Medications Current Medications: Active Medications Acetaminophen (Tylenol) 650 mg PO Q4HR PRN PRN Reason: Pain 1 to 4 Last Admin: 03/09/18 00:10 Dose: 650 mg Acetaminophen/Hydrocodone Bitart ([place] 5/325) 1 tab PO Q6H PRN PRN Reason: pain Last Admin: 03/10/18 06:46 Dose: 1 tab Aspirin (Frank) 325 mg PO DAILYWM [facility] Last Admin: 03/10/18 08:11 Dose: 325 mg Atorvastatin Calcium (Lipitor) 80 mg PO QPM [facility] Last Admin: 03/09/18 21:07 Dose: 80 mg Docusate Sodium (Colace 250mg Capsule) 250 - 500 mg PO DAILY [facility] Last Admin: 03/10/18 08:11 Dose: 250 mg Ferrous Sulfate (Feosol) 325 mg PO DAILYWM [facility] Last Admin: 03/10/18 08:11 Dose: 325 mg Naproxen (Naprosyn) 250 mg PO Q8H PRN PRN Reason: PAIN Last Admin: 03/09/18 18:54 Dose: 250 mg Polyethylene Glycol (Miralax) 17 gm PO DAILY [facility] Last Admin: 03/10/18 08:11 Dose: 17 gm Senna (Senokot) 8.6 - 17.2 mg PO DAILY [facility] Last Admin: 03/10/18 11:41 Dose: Not Given Naproxen Sodium [Aleve] 220 mg PO Q12H PRN 05/29/13 Calcium Carbonate [Tums (Calcium Carbonate 500mg)] 500 mg PO Q4-6H PRN 03/08/18 Objective - Vital Signs/Intake & Output Reviewed Vital Signs: Yes Vital Signs: Vital Signs x48h Temp Pulse Resp BP Pulse Ox 03/10/18 10:00 36.5 C 93 14 123/84 H 99 03/10/18 08:00 36.4 C L 84 16 136/72 H 96 Intake & Output: Intake & Output 03/07/18 03/08/18 03/09/18 03/10/18 23:59 23:59 23:59 23:59 Intake Total 8907.812 2475 1040 Balance 4790.385 7951 1040 - Objective General Appearance: positive: No acute distress, Alert. negative: Lethargic Eyes Bilateral: positive: Normal inspection, PERRL, No lid inflammation, Conjunctivae nml ENT: positive: ENT inspection nml, Pharynx nml, No signs of dehydration. negative: Purulent nasal drainage, Pharyngeal erythema, Oral lesions Neck: positive: Nml inspection, Thyroid nml, No JVD, Trachea midline. negative : Thyromegaly, Lymphadenopathy (R), Lymphadenopathy (L), Stiff neck, Swelling/ bruising, Tracheal deviation Respiratory: positive: Chest non-tender, No respiratory distress, Breath sounds nml. negative: Wheezes, Rales, Rhonchi Cardiovascular: positive: Regular rate & rhythm, No murmur, No gallop. negative : Irregularly irregular, Extrasystoles, Tachycardia, JVD present, Systolic murmur, Diastolic murmur Peripheral Pulses: 2+ Radial (R), 2+ Radial (L), 2+ Dorsalis pedis (R), 2+ Dorsalis pedis (L) Abdomen: positive: Non-tender, No organomegaly, Nml bowel sounds, No distention. negative: Tenderness, Guarding, Rebound Back: positive: Nml inspection. negative: CVA tenderness (R), CVA tenderness (L ) Skin: positive: Color nml, No rash, Warm, Dry. negative: Cyanosis, Diaphoresis , Pallor Extremities: positive: Non-tender, Nml appearance. negative: Calf tenderness, Joint swelling, Jaylan's sign/cords Neurologic/Psychiatric: positive: Oriented x3, Sensation nml, Mood/affect nml. negative: Weakness, Sensory loss, Facial droop, Slurred/abnml speech, Depressed mood/affect - Lab Results Fish Bones: 03/10/18 04:56 03/10/18 04:56 Other Labs: Lab Results x24hrs 03/10/18 03/10/18 Range/Units 04:56 04:56 WBC 4.3 L (4.8-10.8) x10^3/uL RBC 4.64 (4.20-5.40) 10^6/uL Hgb 10.6 L (12.0-16.0) g/dL Hct 34.4 L (37.0-47.0) % MCV 74.1 L (81.0-99.0) fL MCH 22.8 L (27.0-31.0) pg MCHC 30.8 L (32.0-36.0) g/dL RDW 17.7 H (12.0-15.0) % Plt Count 214 (130-450) 10^3/uL MPV 7.4 L (7.9-10.8) fL Neut # 2.6 (1.5-6.6) 10^3/uL Lymph # 1.3 L (1.5-3.5) 10^3/uL [place] # 0.2 (0.0-1.0) 10^3/uL Eos # 0.2 (0.0-0.7) 10^3/uL Baso # 0.0 (0.0-0.1) 10^3/uL Absolute Nucleated RBC 0.01 x10^3/uL Nucleated RBC % 0.2 /100WBC Sodium 139 (135-145) mmol/L Potassium 4.3 (3.5-5.0) mmol/L Chloride 109 (101-111) mmol/L Carbon Dioxide 23 (21-32) mmol/L Anion Gap 7.0 (6-13) BUN 18 (6-20) mg/dL Creatinine 1.2 H (0.4-1.0) mg/dL Estimated GFR (MDRD) 44 L (>89) Glucose 86 (70-100) mg/dL Calcium 8.1 L (8.5-10.3) mg/dL Total Bilirubin 0.7 (0.2-1.0) mg/dL AST 15 (10-42) IU/L ALT < 10 L (10-60) IU/L Alkaline Phosphatase 69 (42-121) IU/L Total Protein 6.1 L (6.7-8.2) g/dL Albumin 2.5 L (3.2-5.5) g/dL Globulin 3.6 (2.1-4.2) g/dL Albumin/Globulin Ratio 0.7 L (1.0-2.2) ABX Reporting Has patient been on IV antibiotics over the past 48 hours?: No Assessment/Plan - Problem List (1) CVA (cerebral vascular accident) Impression: Impression: PT/OT evaluated and treated to pt. They recommend pt to d/c to SNF. Pt agree to this care plan continue PT/OT, will follow up continue Aspirin, Lipitor it is pending if [facility] accept pt nurse report pt is difficult to stand up continue PT/OT, will follow up continue Aspirin, Lipitor MRI reveals pt had recent acute stroke. discuss the result and care plan with pt and pt's son Aspirin 325 mg daily Lipito, and Lipid panel test PT/OT pt does not have issue for swallow, continue current diet follow up ECHO (2) Near syncope Impression: resolved, no more ECHO reveals unremarkable near syncope may be caused by her CVA pt denies any more pre-syncope, no N/V pt had stroke, and near syncope order ECHO, will follow up (3) Weakness of both legs Impression: improved, continue PT/OT continue PT/OT fall precaution (4) Hx of coronary artery disease Impression: stable, no chest pain. initial Troponin and EKG unremarkable order tele, continue vital monitor (5) Rheumatoid arteritis Impression: stable, pt state she did not take prednisone for four years, and she did not want Prednisone d/c prednisone, continue support. (6) Von Willebrand disease Impression: stable, check fact 8 activity. pt had CVA in Aspirin now, precaution of any bleeding. (7) Elevated lactic acid level Impression: lactic acid is down to normal. unknown etiology continue monitor pt's Lactic acid is 3.7, unknown the etiology. Pt does not have fever, chill, WBC is normal, UA is negative for UTI. Blood culture was done in ER, will follow up CXR IVF continue lab monitor (8) CKD (chronic kidney disease) Impression: stable, continue lab monitor, hydration slight improved to GFR 44. continue hydration continue lab monitor GFR 37, creatinine 1.4 hydration with IVF avoid nephrological agents daily lab and vital monitor (9) anemia iron study reveals mild iron deficiency continue ferrous sulf daily lab monitor HGB 10.9 iron study reveals mild iron deficiency PO iron continue lab monitor
[2018-03-10] MEDS: ATORVASTATIN 40 MG TABLET PO SCH (20:25)
[2018-03-10] MEDS: LORATADINE 10 MG TABLET PO SCH (21:47)
[2018-03-11] MEDS: HYDROcod/ACETAM 5/325 MG TABLET PO PRN (00:21)
[2018-03-11 06:25] LABS: BASOPHILS % (AUTO) 0.7 %; EOSINOPHILS # (AUTO) 0.2 10^3/uL (0.0-0.7); EOSINOPHILS % (AUTO) 3.8 %; HGB - HEMOGLOBIN 10.6 g/dL (12.0-16.0); LYMPHOCYTES # (AUTO) 1.2 10^3/uL (1.5-3.5); LYMPHOCYTES % (AUTO) 30.3 %; MEAN CORPUSCULAR HGB CONC 30.7 g/dL (32.0-36.0); MEAN PLATELET VOLUME 7.3 fL (7.9-10.8); MONOCYTES # (AUTO) 0.2 10^3/uL (0.0-1.0); MONOCYTES % (AUTO) 4.6 %; NEUTROPHILS # (AUTO) 2.4 10^3/uL (1.5-6.6); NEUTROPHILS % (AUTO) 60.6 %; PLT - PLATELET COUNT 206 10^3/uL (130-450); RED BLOOD COUNT 4.62 10^6/uL (4.20-5.40); RED CELL DISTRIBUTION WIDTH 18.3 % (12.0-15.0)
[2018-03-11 06:37] LABS: ALBUMIN 2.5 g/dL (3.2-5.5); ALBUMIN/GLOBULIN RATIO 0.7 (1.0-2.2); ALKALINE PHOSPHATASE 79 IU/L (42-121); ALT ALANINE AMINOTRANSFERASE < 10 IU/L (10-60); AST ASPARTATE AMINOTRANSFERASE 16 IU/L (10-42); BILIRUBIN,TOTAL 0.6 mg/dL (0.2-1.0); BUN - BLOOD UREA NITROGEN 16 mg/dL (6-20); CALCIUM 8.3 mg/dL (8.5-10.3); CARBON DIOXIDE - CO2 24 mmol/L (21-32); CHLORIDE 108 mmol/L (101-111); CREATININE 1.1 mg/dL (0.4-1.0); GFR - MDRD 49 (>89); GLUCOSE 90 mg/dL (70-100); SODIUM 138 mmol/L (135-145); TOTAL PROTEIN 6.2 g/dL (6.7-8.2)
[2018-03-11] MEDS: POLYETHYLENE GLYCOL 3350 17 GM PACKET PO SCH (09:12)
[2018-03-11] MEDS: DOCUSATE SODIUM 250 MG CAPSULE PO SCH (09:13)
[2018-03-11] MEDS: ASPIRIN 325 MG TABLET PO SCH (09:13)
[2018-03-11] MEDS: LORATADINE 10 MG TABLET PO SCH (09:13)
[2018-03-11] MEDS: FERROUS SULFATE 325 MG TABLET PO SCH (09:13)
[2018-03-11] MEDS: SENNA 8.6 MG TABLET PO SCH (09:22)
--- NOTE | 2018-03-11 12:09 | Discharge Plan ---
"Discharge Plan for SNF / [facility] - DC Plan and Transition Orders Disposition: 03 SNF DC/Xfer Condition: Poor SNF Transition Orders: Admit to: [[facility]] under the care of [Doctor Alexander] Discharge Diagnosis: [CVA, near syncope, weakness of both legs, rheumatoid osteoarthritis, CKD] Medicare Certification: I certify that [facility] longterm care is medically necessary on a continuing basis for any of the conditions for which she/he is receiving care during hospitalization. Notify PCP of admission and forward orders to primary provider for signature. Weight on admission and [90kg]. Call PCP immediately if weight increases by [4 ] pounds or if patient develops dyspnea, chest pain/tightness or edema. House Bowel Program: [Yes] If no BM after 2 days, nurse may give M.O.M. 30ml PO PRN and /or ducolax Supp 1 PA and /or FELA 250mg P.O., and/or senna 1-2 tabs PO. On day 3 nurse may give repeat above order until residents constipation is resolved. Immunizations: Annual Influenza Vaccine: [Yes]. (between Jun 14 and January 11.) Unless allergy or already given Two-Step PPD: [Yes] per [facility] 248-235 or appropriate documentation of approved exceptions Treatments & Other Orders: [May follow up Dr. Alexander at arrival to the facility] Oxygen Orders: [PRN] Lab Tests or X-Rays Orders: [may follow up Dr. Alexander] Orthopedic Orders: [n]. Medications: PLEASE REFER TO THE DISCHARGE MEDICATION LIST. Insulin Orders? [No] Diagnosis: Diabetes Initiate hypo and hyperglycemia protocols for BG <70 and BG >375. May check BG prn for signs/symptoms of dysglycemia. Frequency of BG checks: [AC/Meal/HS] Basal Insulin: [] Lantus 100 units / ml inject subq as follows: [] [] Other: [] Correction Insulin: - Select the type of insulin below [Choose: Novolog/Humalog]100 units /ml insulin inject subq per orders indicate below [] LOW DOSE [] MODERATE DOSE [] MODERATE/HIGH DOSE [] HIGH DOSE GB UNITS GB UNITS GB UNITS GB UNITS 61-140 0 UNITS 61-140 0 UNITS 61-140 0 UNITS 61-140 0 UNITS 141-175 1 UNITS 141-175 1 UNITS 141-175 2 UNITS 141-175 3 UNITS 176-225 2 UNITS 176-225 3 UNITS 176-225 4 UNITS 176-225 5 UNITS 226-275 3 UNITS 226-275 5 UNITS 226-275 6 UNITS 226-275 7 UNITS 276-325 4 UNITS 276-325 7 UNITS 276-325 8 UNITS 276-325 9 UNITS 326-375 5 UNITS 326-375 9 UNITS 326-375 10 UNITS 326-375 11 UNITS >375 CONTACT MD >375 CONTACT MD >375 CONTACT MD >375 CONTACT MD Custom Dosing: [Choose: None/Novolog/Humalog] 100 units/ml Insulin inject subq as follows: GB Units 61-140 [] Units 141-175 [] Units 176-225 [] Units 226-275 [] Units 276-325 []Units 326-375 [] Units >375 Contact MD Allergies and Adverse Reactions: Allergies Allergy/AdvReac Type Severity Reaction Status Date / Time prednisone AdvReac Severe Anxiety Verified 03/08/18 10:39 oxycodone HCl * AdvReac Intermediate Emesis Verified 03/07/18 21:36 [From Percocet] codeine [Codeine] AdvReac Mild Itching Verified 03/07/18 21:36 Penicillins AdvReac Mild Itching Verified 03/07/18 21:36 hydrocodone AdvReac Unknown Itching Verified 03/07/18 21:36 fluoxetine HCl * AdvReac Anxiety Verified 03/07/18 21:36 [From Prozac] - Medications New Prescriptions: Aspirin [Frank] 325 mg PO DAILYWM #10 tablet Atorvastatin [Lipitor] 80 mg PO QPM #20 tablet Ferrous Sulfate 325 mg PO DAILY #10 tablet HYDROcod/ACETAM 5/325 [[place] 5/325] 1 tab PO Q6H PRN #15 tablet PRN Reason: pain - Diet Type: Geriatric Texture: Regular Liquids: Thin May have monthly special meal: Yes - Therapies | Activity Therapy: Evaluation | Treat if indicated: PT, OT Rehabilitation Potential: Maximize functional status Activity: Activity as Tolerated Weight Bearing: Full Weight Assistance Devices: Walker Additional Instructions: May follow up Dr. Alexander at arrival to the facility, continue PT/OT training at the facility"
--- NOTE | 2018-03-11 12:29 | DISCHARGE SUMMARY ---
Discharge Summary Discharge Date: 03/11/18 Discharging Provider: KWON Primary Care Provider: DR. Alexander Condition at Discharge: Poor Discharge Disposition: 03 SNF DC/Xfer Discharge Facility Name: [facility] - ALLERGIES Allergies/Adverse Reactions: Allergies Allergy/AdvReac Type Severity Reaction Status Date / Time prednisone AdvReac Severe Anxiety Verified 03/08/18 10:39 oxycodone HCl * AdvReac Intermediate Emesis Verified 03/07/18 21:36 [From Percocet] codeine [Codeine] AdvReac Mild Itching Verified 03/07/18 21:36 Penicillins AdvReac Mild Itching Verified 03/07/18 21:36 hydrocodone AdvReac Unknown Itching Verified 03/07/18 21:36 fluoxetine HCl * AdvReac Anxiety Verified 03/07/18 21:36 [From Prozac] - MEDICATIONS Home Medications: Ambulatory Orders Medication Instructions Recorded Confirmed Naproxen Sodium [Aleve] 220 mg PO Q12H PRN 05/29/13 03/08/18 Calcium Carbonate [Tums (Calcium 500 mg PO Q4-6H PRN 03/08/18 03/08/18 Carbonate 500mg)] Aspirin [Frank] 325 mg PO DAILYWM #10 tablet 03/11/18 Atorvastatin [Lipitor] 80 mg PO QPM #20 tablet 03/11/18 Ferrous Sulfate 325 mg PO DAILY #10 tablet 03/11/18 HYDROcod/ACETAM 5/325 [[place] 5/325] 1 tab PO Q6H PRN #15 tablet 03/11/18 - LABS Result Diagrams: 03/11/18 05:46 03/11/18 05:46
--- NOTE | 2018-03-11 15:04 | PROVIDER PROGRESS NOTE ---
Subjective - Prog Note Date Prog Note Date: 03/11/18 - Subjective Pt reports feeling: Improved Subjective: pt report she continue to improve the strength and walked with PT/OT, and nurse. Pt denies fever, chill, CP, SOB Pt was planned to d/c [facility] today. however, social work report pt's insurance plan network does not include [facility], and Pt will have high co-pay. Pt plan to d/c to [facility] tomorrow. Current Medications - Current Medications Current Medications: Active Medications Acetaminophen (Tylenol) 650 mg PO Q4HR PRN PRN Reason: Pain 1 to 4 Last Admin: 03/09/18 00:10 Dose: 650 mg Acetaminophen/Hydrocodone Bitart ([place] 5/325) 1 tab PO Q6H PRN PRN Reason: pain Last Admin: 03/11/18 00:21 Dose: 1 tab Aspirin (Frank) 325 mg PO DAILYWM [facility] Last Admin: 03/11/18 09:13 Dose: 325 mg Atorvastatin Calcium (Lipitor) 80 mg PO QPM [facility] Last Admin: 03/10/18 20:25 Dose: 80 mg Docusate Sodium (Colace 250mg Capsule) 250 - 500 mg PO DAILY [facility] Last Admin: 03/11/18 09:13 Dose: 250 mg Ferrous Sulfate (Feosol) 325 mg PO DAILYWM [facility] Last Admin: 03/11/18 09:13 Dose: 325 mg Loratadine (Claritin) 10 mg PO DAILY [facility] Last Admin: 03/11/18 09:13 Dose: 10 mg Naproxen (Naprosyn) 250 mg PO Q8H PRN PRN Reason: PAIN Last Admin: 03/09/18 18:54 Dose: 250 mg Polyethylene Glycol (Miralax) 17 gm PO DAILY [facility] Last Admin: 03/11/18 09:12 Dose: 17 gm Senna (Senokot) 8.6 - 17.2 mg PO DAILY [facility] Last Admin: 03/11/18 09:22 Dose: Not Given Naproxen Sodium [Aleve] 220 mg PO Q12H PRN 13 Calcium Carbonate [Tums (Calcium Carbonate 500mg)] 500 mg PO Q4-6H PRN 03/08/18 Objective - Vital Signs/Intake & Output Reviewed Vital Signs: Yes Vital Signs: Vital Signs x48h Temp Pulse Resp BP Pulse Ox 03/11/18 08:00 36.5 C 104 H 18 145/106 H 98 Intake & Output: Intake & Output 03/08/18 03/09/18 03/10/18 03/11/18 23:59 23:59 23:59 23:59 Intake Total 1079.630 4290 1890 1220 Balance 8886.032 0411 1890 1220 - Objective General Appearance: positive: No acute distress, Alert. negative: Lethargic Eyes Bilateral: positive: Normal inspection, PERRL, No lid inflammation, Conjunctivae nml ENT: positive: ENT inspection nml, Pharynx nml, No signs of dehydration. negative: Purulent nasal drainage, Pharyngeal erythema, Oral lesions Neck: positive: Nml inspection, Thyroid nml, No JVD, Trachea midline. negative : Thyromegaly, Lymphadenopathy (R), Lymphadenopathy (L), Stiff neck, Carotid bruit, Swelling/bruising, Tracheal deviation Respiratory: positive: Chest non-tender, No respiratory distress, Breath sounds nml. negative: Wheezes, Rales, Rhonchi Cardiovascular: positive: Regular rate & rhythm, No murmur, No gallop. negative : Irregularly irregular, Extrasystoles, Tachycardia, Bradycardia, JVD present, Systolic murmur, Diastolic murmur Peripheral Pulses: 2+ Radial (R), 2+ Radial (L), 2+ Dorsalis pedis (R), 2+ Dorsalis pedis (L) Abdomen: positive: Non-tender, No organomegaly, Nml bowel sounds, No distention. negative: Tenderness, Guarding, Rebound Back: positive: Nml inspection. negative: CVA tenderness (R), CVA tenderness (L ) Skin: positive: Color nml, No rash, Warm, Dry. negative: Cyanosis, Diaphoresis , Pallor Extremities: positive: Non-tender. negative: Calf tenderness, Jaylan's sign/ cords Neurologic/Psychiatric: positive: Oriented x3, Sensation nml, Mood/affect nml, Weakness. negative: Sensory loss, Facial droop, Slurred/abnml speech, Depressed mood/affect - Lab Results Fish Bones: 03/11/18 05:46 03/11/18 05:46 Other Labs: Lab Results x24hrs 03/11/18 03/11/18 Range/Units 05:46 05:46 WBC 4.0 L (4.8-10.8) x10^3/uL RBC 4.62 (4.20-5.40) 10^6/uL Hgb 10.6 L (12.0-16.0) g/dL Hct 34.6 L (37.0-47.0) % MCV 75.0 L (81.0-99.0) fL MCH 23.0 L (27.0-31.0) pg MCHC 30.7 L (32.0-36.0) g/dL RDW 18.3 H (12.0-15.0) % Plt Count 206 (130-450) 10^3/uL MPV 7.3 L (7.9-10.8) fL Neut # 2.4 (1.5-6.6) 10^3/uL Lymph # 1.2 L (1.5-3.5) 10^3/uL [place] # 0.2 (0.0-1.0) 10^3/uL Eos # 0.2 (0.0-0.7) 10^3/uL Baso # 0.0 (0.0-0.1) 10^3/uL Absolute Nucleated RBC 0.00 x10^3/uL Nucleated RBC % 0.0 /100WBC Sodium 138 (135-145) mmol/L Potassium 4.1 (3.5-5.0) mmol/L Chloride 108 (101-111) mmol/L Carbon Dioxide 24 (21-32) mmol/L Anion Gap 6.0 (6-13) BUN 16 (6-20) mg/dL Creatinine 1.1 H (0.4-1.0) mg/dL Estimated GFR (MDRD) 49 L (>89) Glucose 90 (70-100) mg/dL Calcium 8.3 L (8.5-10.3) mg/dL Total Bilirubin 0.6 (0.2-1.0) mg/dL AST 16 (10-42) IU/L ALT < 10 L (10-60) IU/L Alkaline Phosphatase 79 (42-121) IU/L Total Protein 6.2 L (6.7-8.2) g/dL Albumin 2.5 L (3.2-5.5) g/dL Globulin 3.7 (2.1-4.2) g/dL Albumin/Globulin Ratio 0.7 L (1.0-2.2) ABX Reporting Has patient been on IV antibiotics over the past 48 hours?: No Assessment/Plan - Problem List (1) CVA (cerebral vascular accident) Impression: Impression: pt continue improvement. PT/OT recommend pt for SNF continue PT/OT continue Aspirin, Lipitor plan to be d/c to [facility] PT/OT evaluated and treated to pt. They recommend pt to d/c to SNF. Pt agree to this care plan continue PT/OT, will follow up continue Aspirin, Lipitor it is pending if [facility] accept pt nurse report pt is difficult to stand up continue PT/OT, will follow up continue Aspirin, Lipitor MRI reveals pt had recent acute stroke. discuss the result and care plan with pt and pt's son Aspirin 325 mg daily Lipito, and Lipid panel test PT/OT pt does not have issue for swallow, continue current diet follow up ECHO (2) Near syncope Impression: resolved, no more ECHO reveals unremarkable near syncope may be caused by her CVA pt denies any more pre-syncope, no N/V pt had stroke, and near syncope order ECHO, will follow up (3) Weakness of both legs Impression: improved, continue PT/OT improved, continue PT/OT continue PT/OT fall precaution (4) Hx of coronary artery disease Impression: stable stable, no chest pain. initial Troponin and EKG unremarkable order tele, continue vital monitor (5) Rheumatoid arteritis Impression: stable, pt state she did not take prednisone for four years, and she did not want Prednisone d/c prednisone, continue support. (6) Von Willebrand disease Impression: stable, check fact 8 activity. pt had CVA in Aspirin now, precaution of any bleeding. (7) Elevated lactic acid level Impression: resolved lactic acid is down to normal. unknown etiology continue monitor pt's Lactic acid is 3.7, unknown the etiology. Pt does not have fever, chill, WBC is normal, UA is negative for UTI. Blood culture was done in ER, will follow up CXR IVF continue lab monitor (8) CKD (chronic kidney disease) Impression: stable, continue lab monitor, hydration slight improved to GFR 44. continue hydration continue lab monitor GFR 37, creatinine 1.4 hydration with IVF avoid nephrological agents daily lab and vital monitor (9) anemia stable, continue iron pill iron study reveals mild iron deficiency continue ferrous sulf daily lab monitor HGB 10.9 iron study reveals mild iron deficiency PO iron continue lab monitor
[2018-03-11] MEDS: ATORVASTATIN 40 MG TABLET PO SCH (20:21)
[2018-03-12] MEDS: HYDROcod/ACETAM 5/325 MG TABLET PO PRN (00:02)
[2018-03-12] MEDS: NAPROXEN 250 MG TABLET PO PRN (05:03)
[2018-03-12 05:13] LABS: BASOPHILS % (AUTO) 0.5 %; EOSINOPHILS # (AUTO) 0.2 10^3/uL (0.0-0.7); EOSINOPHILS % (AUTO) 4.1 %; HGB - HEMOGLOBIN 10.7 g/dL (12.0-16.0); LYMPHOCYTES # (AUTO) 1.5 10^3/uL (1.5-3.5); LYMPHOCYTES % (AUTO) 34.6 %; MEAN CORPUSCULAR HEMOGLOBIN 22.6 pg (27.0-31.0); MEAN CORPUSCULAR HGB CONC 30.7 g/dL (32.0-36.0); MEAN CORPUSCULAR VOLUME 73.4 fL (81.0-99.0); MEAN PLATELET VOLUME 7.3 fL (7.9-10.8); MONOCYTES # (AUTO) 0.2 10^3/uL (0.0-1.0); MONOCYTES % (AUTO) 5.6 %; NEUTROPHILS # (AUTO) 2.4 10^3/uL (1.5-6.6); NEUTROPHILS % (AUTO) 55.2 %; PLT - PLATELET COUNT 218 10^3/uL (130-450); RED BLOOD COUNT 4.72 10^6/uL (4.20-5.40); RED CELL DISTRIBUTION WIDTH 17.8 % (12.0-15.0); WHITE BLOOD COUNT 4.3 x10^3/uL (4.8-10.8)
[2018-03-12 05:17] LABS: ALBUMIN 2.8 g/dL (3.2-5.5); ALBUMIN/GLOBULIN RATIO 0.8 (1.0-2.2); ALKALINE PHOSPHATASE 79 IU/L (42-121); ALT ALANINE AMINOTRANSFERASE < 10 IU/L (10-60); AST ASPARTATE AMINOTRANSFERASE 15 IU/L (10-42); BUN - BLOOD UREA NITROGEN 15 mg/dL (6-20); CALCIUM 8.4 mg/dL (8.5-10.3); CARBON DIOXIDE - CO2 24 mmol/L (21-32); CHLORIDE 106 mmol/L (101-111); CREATININE 1.2 mg/dL (0.4-1.0); GFR - MDRD 44 (>89); GLUCOSE 105 mg/dL (70-100); SODIUM 137 mmol/L (135-145); TOTAL PROTEIN 6.5 g/dL (6.7-8.2)
[2018-03-12] MEDS: SENNA 8.6 MG TABLET PO SCH (09:05)
[2018-03-12] MEDS: ASPIRIN 325 MG TABLET PO SCH (09:05)
[2018-03-12] MEDS: DOCUSATE SODIUM 250 MG CAPSULE PO SCH (09:05)
[2018-03-12] MEDS: FERROUS SULFATE 325 MG TABLET PO SCH (09:06)
[2018-03-12] MEDS: LORATADINE 10 MG TABLET PO SCH (09:06)
[2018-03-12] MEDS: POLYETHYLENE GLYCOL 3350 17 GM PACKET PO SCH (09:06)
[2018-03-12 09:11] VITALS: BP 157/89
--- NOTE | 2018-03-12 11:40 | DISCHARGE SUMMARY ---
Discharge Summary Discharge Date: 03/12/18 Discharging Provider: KWON Condition at Discharge: Poor Discharge Disposition: SNF DC/Xfer Discharge Facility Name: [facility] - DIAGNOSES Admission Diagnoses: (1) CVA (cerebral vascular accident) (2) Near syncope (3) Weakness of both legs (4) Hx of coronary artery disease (5) Rheumatoid arteritis (6) Von Willebrand disease (7) Elevated lactic acid level (8) CKD (chronic kidney disease) Discharge Diagnoses with Status of Each Condition: (1) CVA (cerebral vascular accident) MRI reveals left PICA stroke. pt had improvement. pt is prescribe aspirin and lipitor for SNF (2) Near syncope resolved (3) Weakness of both legs improvement, follow in SNF (4) Hx of coronary artery disease stable (5) Rheumatoid arteritis stable (6) Von Willebrand disease stable (7) Elevated lactic acid level resolved (8) CKD (chronic kidney disease) stable (9) anemia stable, mild iron deficiency, pt is prescribed ferrous sulf - HPI History of Present Illness: refer from Dr. Sanchez's HPI for pt as the following: Ms. Chanell Ball is a very pleasant 72-year-old lady who had tried some marijuana brownies this evening and afterwards, while walking to the bathroom became weak and disoriented and felt the need to sit down. Her roommate helped her to the ground and stated that she did not pass out but became less responsive for a few moments. She was brought to the emergency department where head CT was performed and found a possible basilar infarct which could not be ruled out without an MRI. Because of this was felt to be prudent to admit her to the hospital in observation so that she may have an MRI in the morning to rule out an infarct. - HOSPITAL COURSE Hospital Course: pt was admitted for evaluation and treatment of near syncope. pt was found to have left PICA CVA. pt continue to have PT/OT. pt is prescribed Aspirin and Lipitor. Pt is recommended to continue training at SNF. Pt was d/c to [facility]. - ALLERGIES Allergies/Adverse Reactions: Allergies Allergy/AdvReac Type Severity Reaction Status Date / Time prednisone AdvReac Severe Anxiety Verified 03/08/18 10:39 oxycodone HCl * AdvReac Intermediate Emesis Verified 03/07/18 21:36 [From Percocet] codeine [Codeine] AdvReac Mild Itching Verified 03/07/18 21:36 Penicillins AdvReac Mild Itching Verified 03/07/18 21:36 hydrocodone AdvReac Unknown Itching Verified 03/07/18 21:36 fluoxetine HCl * AdvReac Anxiety Verified 03/07/18 21:36 [From Prozac] - MEDICATIONS Home Medications: Ambulatory Orders Medication Instructions Recorded Confirmed Naproxen Sodium [Aleve] 220 mg PO Q12H PRN 05/29/13 03/08/18 Calcium Carbonate [Tums (Calcium 500 mg PO Q4-6H PRN 03/08/18 03/08/18 Carbonate 500mg)] Aspirin [Frank] 325 mg PO DAILYWM #10 tablet 03/11/18 Atorvastatin [Lipitor] 80 mg PO QPM #20 tablet 03/11/18 Ferrous Sulfate 325 mg PO DAILY #10 tablet 03/11/18 HYDROcod/ACETAM 5/325 [[place] 5/325] 1 tab PO Q6H PRN #15 tablet 03/11/18 - PHYSICAL EXAM AT DISCHARGE General Appearance: positive: No acute distress, Alert. negative: Lethargic Eyes Bilateral: positive: Normal inspection, PERRL, No lid inflammation, Conjunctivae nml ENT: positive: ENT inspection nml, Pharynx nml, No signs of dehydration. negative: Purulent nasal drainage, Pharyngeal erythema, Oral lesions Neck: positive: Nml inspection, Thyroid nml, No JVD, Trachea midline. negative : Thyromegaly, Lymphadenopathy (R), Lymphadenopathy (L), Stiff neck, Carotid bruit, Swelling/bruising, Tracheal deviation Respiratory: positive: Chest non-tender, No respiratory distress, Breath sounds nml. negative: Wheezes, Rales, Rhonchi Cardiovascular: positive: Regular rate & rhythm, No murmur, No gallop. negative : Irregularly irregular, Extrasystoles, Tachycardia, Bradycardia, JVD present, Systolic murmur, Diastolic murmur Peripheral Pulses: positive: 2+ Abdomen: positive: Non-tender, No organomegaly, Nml bowel sounds, No distention. negative: Tenderness, Guarding, Rebound Back: positive: Nml inspection. negative: CVA tenderness (R), CVA tenderness (L ) Skin: positive: Color nml, No rash, Warm, Dry. negative: Cyanosis, Diaphoresis , Pallor Extremities: positive: Non-tender, Nml appearance. negative: Calf tenderness, Jaylan's sign/cords Neurologic/Psychiatric: positive: Oriented x3, Sensation nml, Mood/affect nml. negative: Sensory loss, Facial droop, Slurred/abnml speech, Depressed mood/ affect - LABS Result Diagrams: 03/12/18 04:45 03/12/18 04:45 - FOLLOW UP Follow Up: may follow up Dr. Delgado at the arrival to the facility, continue PT/OT - TIME SPENT Time Spent in Discharge (Minutes): 45
== END 2018-03-12 11:00 | DRG 65 ==
LOC: EDUNIT# → ED 20:47 → OBS 03-08 01:06 → OBSVTOIN 03-08 11:58 → INTOOBSV 03-08 11:58 → MS2 03-08 14:05
PROVIDERS: ADMIT Hospitalist; ATTEND Nurse Practitioner Gerontology
DX: I63.9 Cerebral infarction, unspecified (principal); R93.0 Abnormal findings on diagnostic imaging of skull and head, not elsewhere classified; E86.0 Dehydration; N28.9 Disorder of kidney and ureter, unspecified; D68.0 Von Willebrand disease; Z95.5 Presence of coronary angioplasty implant and graft; Z98.62 Peripheral vascular angioplasty status; Z66 Do not resuscitate; R55 Syncope and collapse; R53.1 Weakness; I25.10 Atherosclerotic heart disease of native coronary artery without angina pectoris; M06.9 Rheumatoid arthritis, unspecified; N18.9 Chronic kidney disease, unspecified; D50.9 Iron deficiency anemia, unspecified
CPT/HCPCS: 36415; 70450; 70553; 71045; 80048; 80053; 80061; 80306; 81001; 81003; 82607; 82728; 83540; 83605; 83615; 83690; 83721; 83735; 83880; 84100; 84466; 84484; 85025; 85027; 85044; 85240; 87040; 87086; 93005; 93306; 96360; 96361; 99285

== ENCOUNTER 2021-09-02 03:17 | Outpatient (CLI) | payer MEDICARE | END 2021-09-02 03:18 | disposition EMS.NT | LOC: EMS 03:17 | DX: Z03.89 Encounter for observation for other suspected diseases and conditions ruled out (principal) ==